=== PATIENT | female | born 1955 | race Caucasian/White ===

== ENCOUNTER → 2019-01-04 | Day surgery (SDC) | payer OTHER ==
[2019-01-03 17:16] LABS: BASOPHILS % 0.5 % (0.0-1.0); EOSINOPHILS # (AUTO) 0.2 (0.0-0.4); EOSINOPHILS % 2.6 % (0.0-6.0); HEMATOCRIT 41.6 % (34.2-44.1); HEMOGLOBIN 13.9 g/dL (12.0-16.0); LYMPHOCYTES % 34.3 % (18.0-39.1); MEAN CORPUSCULAR HGB CONC 33.4 g/dL (31-35); MEAN CORPUSCULAR VOLUME 89.7 fL (81-99); MONOCYTES # (AUTO) 0.6 (0.2-0.8); MONOCYTES % 6.5 % (4.4-11.3); NEUTROPHILS # (AUTO) 4.9 (2.1-6.9); NEUTROPHILS % 55.9 % (38.7-80.0); PLATELET COUNT 261 x10e3/uL (140-360); RED BLOOD COUNT 4.64 x10e6/uL (3.6-5.1); RED CELL DISTRIBUTION WIDTH 12.3 % (11.7-14.4)
--- NOTE | 2019-01-03 17:16 | Diagnostic Imaging Report ---
EXAMINATION: CHEST 2 VIEWS INDICATION: Preop evaluation for foot surgery. No chest pain or shortness of breath. COMPARISON: None FINDINGS: PA and lateral views TUBES and LINES: None. LUNGS: Lungs are well inflated. Bilateral peribronchial cuffing. There is no evidence of pneumonia or pulmonary edema. PLEURA: No pleural effusion or pneumothorax. HEART AND MEDIASTINUM: Cardiac size is mildly enlarged. BONES AND SOFT TISSUES: No acute osseous lesion. Soft tissues are unremarkable. UPPER ABDOMEN: No free air under the diaphragm. There are cholecystectomy clips. IMPRESSION: Bilateral peribronchial cuffing, which could represent viral etiology or reactive airway disease. Signed by: Dr. Andrea Kennedy M.D. on 01/03/2019 5:13 PM
[2019-01-03 17:33] LABS: ANION GAP 13.6 mmol/L (8-16); BLOOD UREA NITROGEN 8 mg/dL (7-26); BUN/CREATININE RATIO 10 (6-25); CALCIUM 9.5 mg/dL (8.4-10.2); CARBON DIOXIDE 24 mmol/L (22-29); CHLORIDE 108 mmol/L (98-107); CREATININE, SERUM 0.81 mg/dL (0.57-1.11); EST GLOMERULAR FILTRATION RATE > 60 ML/MIN (60-); GLUCOSE 107 mg/dL (74-118); POTASSIUM 3.6 mmol/L (3.5-5.1); SODIUM 142 mmol/L (136-145)
[~2019-01-04] MED LIST: ALBUTEROL0.63 MG/3 INH; BUPIVACAINE HCL 0.5% INJ 30 ML VIAL INJ ONE; CEFAZOLIN SOD 1 GM/NS 50ML 50 ML IV ONE; CHLORTHALIDONE25 MG PO; DEXAMETHASONE SOD PHOS INJ 4 MG/ML VIAL ONE; FENTANYL CITRATE/PF 100MCG/2 ML INJ ONE; KETOROLAC TROMETHAMINE 30 MG/ML VIAL ONE; LIDOCAINE HCL 2% LOCAL INJ 5 ML SDV VIAL INJ ONE; MIDAZOLAM HCL 2 MG/2 ML VIAL ONE; OMEPRAZOLE40 MG PO; ONDANSETRON HCL INJ 2MG/ML 2ML 2 MG/ML VIAL ONE; POTASSIUM CHLO10 ME1 PO; PROPOFOL IV EMULSION 10 MG/ML 20 ML VIAL ONE; SERTRALINE HCL50 MG PO; SEVOFLURANE INHAL SOLN 250 ML PEN BTL ONE; VERAPAMIL ER120 MG PO
--- OUTSIDE RECORDS SUMMARY | 2019-01-04 05:24 | XMS REPORT | Continuity of Care Document ---
Author Author [facility] Interface Address Unknown Phone Unavailable Problems Problem Status Onset Date Classification Date Reported Comments Source Voiding dysfunction Active Problem 03/14/2018 [facility] Urinary frequency Active Problem 03/14/2018 [facility] Leukocytes in urine Active Problem 03/14/2018 [facility] Urinary tract infection Active Problem 03/14/2018 [facility] Medications Medication Details Route Status Patient Instructions Ordering Provider Order Date Source Nitrofurantoin 100 MG Oral Capsule [Macrobid] 100 mg=1 cap, PO, BID, pt to take i po bid for 3-5 days when sx+, X 30 day, # 60 cap, 1 Refill(s) No Longer Active 12/06/2017 [facility] Nitrofurantoin 100 MG Oral Capsule [Macrobid] 100 mg=1 cap, PO, BID, pt to take i po bid for 3-5 days and hold the remainder for later use, X 30 day, # 60 cap, 0 Refill(s) Active 09/22/2017 [facility] Allergies, Adverse Reactions, Alerts Substance Category Reaction Severity Reaction type Status Date Reported Comments Source Immunizations Immunization Date Given Site Status Last Updated Comments Source Results Order Name Results Value Reference Range Date Interpretation Comments Source URINE AND STOOL POC UA Prot Negative mg/dL Negative mg/dL 12/06/2017 [facility] URINE AND STOOL POC UA pH 7.0 5.0 - 8.0 12/06/2017 [facility] URINE AND STOOL POC UA SG 1.010 <=1.030 12/06/2017 [facility] URINE AND STOOL POC UA Turbidity Clear *NA* (12/06/17 8:52 AM) Clear 12/06/2017 [facility] URINE AND STOOL POC UA Color Yellow *NA* (12/06/17 8:52 AM) Yellow 12/06/2017 [facility] URINE AND STOOL POC UA Glu Negative mg/dL Negative mg/dL 12/06/2017 [facility] URINE AND STOOL POC UA Ket Negative mg/dL Negative mg/dL 12/06/2017 [facility] URINE AND STOOL POC UA Uro 0.2 EU/dL 0.1 - 1.0 12/06/2017 [facility] URINE AND STOOL POC UA Bld Negative *NA* (12/06/17 8:52 AM) Negative 12/06/2017 [facility] URINE AND STOOL POC UA Bili Negative *NA* (12/06/17 8:52 AM) Negative 12/06/2017 [facility] URINE AND STOOL POC UA LeukEst Trace *ABN* (12/06/17 8:52 AM) Negative 12/06/2017 [facility] URINE AND STOOL POC UA Nit Negative *NA* (12/06/17 8:52 AM) Negative 12/06/[facility] Abdomen/Pelvis w/wo IV contrast CT Abdomen/Pelvis w/wo IV contrast CT Exam: CT Scan of the abdomen and pelvis with and without contrast Reason for Exam: Frequent urinary tract infections Comparison Exam: None Technique: Multiple axial images were obtained of the abdomen and pelvis. 5 mm slices were acquired before and after injection of 100 cc Omnipaque 300 IV. Reformatted sagittal and coronal images were obtained for additional diagnostic information. Total exam DDW=9955 mGy-cm. This exam was performed according to our departmental dose-optimization program, which includes automated exposure control, adjustment of the MA and/or KV according to patient size and/or use of iterative reconstruction technique. Discussion: Visualized portions of the lung bases are unremarkable. The patient is status post cholecystectomy. No biliary duct dilation. Liver is unremarkable. Portal venous system is patent. Stomach is unremarkable. Pancreas, adrenal glands, and spleen are within normal limits. No calcified stones seen within the kidneys, ureters, or the bladder. No focal enhancing masses seen within the kidneys or the bladder. No dilated loops of bowel. The appendix is normal. Uterus and bladder are unremarkable. No appreciable lymphadenopathy. No acute bony abnormalities appreciated. No suspicious osteoblastic or osteolytic lesions. No evidence seen for abdominal aortic aneurysm or dissection. Impression: 1. No calcified stones seen within the kidneys, ureters, or the bladder. No focal enhancing masses seen within the kidneys or the bladder. 09/13/2017 - - Read by: Melchor Laguerre MD Dictated Date/time: 09/13/17 12:22 Electronically Signed by: Melchor Laguerre MD 09/13/17 12:38 FINAL REPORT MAIA Chen Vital Signs Vital Sign Value Date Comments Source Weight 73.636 12/06/2017 [facility] BMI Calculated 27.87 12/06/2017 [facility] Height 162.56 cm 12/06/2017 [facility] Systolic (mm Hg) 163 12/06/2017 [facility] Diastolic (mm Hg) 76 12/06/2017 [facility] Heart Rate 57 12/06/2017 [facility] BMI Calculated 28.21 09/22/2017 [facility] Height 162.56 cm 09/22/2017 [facility] Weight 74.545 09/22/2017 [facility] Heart Rate 59 09/22/2017 [facility] Systolic (mm Hg) 161 09/22/2017 [facility] Diastolic (mm Hg) 76 09/22/2017 [facility] Encounters Location Location Details Encounter Type Encounter Number Reason For Visit Attending Provider ADM Date DC Date Status Source Outpatient [id number] [facility] 09/22/2017 [facility] [place] [id number] [facility] 09/22/2017 09/23/2017 [facility] Outpatient [id number] [facility] 12/06/2017 [facility] [place] [id number] [facility] 12/06/2017 12/07/2017 [facility] Outpatient [id number] [facility] 02/23/2019 [facility] Procedures Procedure Code Date Perfomer Comments Source Measurement of post-voiding residual urine and/or bladder capacity by ultrasound, non-imaging 08675 12/06/2017 [facility] Cystourethroscopy (separate procedure) 55113 09/22/2017 [facility]
--- OUTSIDE RECORDS SUMMARY | 2019-01-04 05:24 | XMS REPORT | Clinical Summary ---
Author Author [facility] Address Unknown Phone Unavailable Care Team Providers Care Supervisor Agricultural Education Name Role Phone Asked, No Pcp PCP Unavailable Allergies No Known Allergies Medications End Date Status Medication Sig Dispensed Refills Start Date Active verapamil sustained Take 240 mg 0 release (CALAN-SR) 240 MG by mouth SR tablet nightly. Active chlorthalidone (HYGROTEN) Take 25 mg by 0 25 MG tablet mouth daily. Active aspirin (ECOTRIN) 81 MG Take 81 mg by 0 enteric coated tablet mouth daily. Active multivitamins & Take by mouth 0 minerals-ferrous daily. gluconate 9 mg iron/15 mL liquid Active omega-3 acid ethyl esters Take 1 g by 0 (LOVAZA) 1 gram capsule mouth 2 (two) times a day. Active folic acid (FOLVITE) 1 MG Take 1 mg by 0 tablet mouth daily. Active magnesium chloride 64 mg Take 64 mg by 0 tablet,delayed release mouth daily. (DR/EC) DR tablet Active omeprazole (PriLOSEC) 40 TAKE 1 90 capsule 3 08/30/201 MG capsule CAPSULE DAILY 8 08/30/2018 Discontinued omeprazole (PriLOSEC) 40 Take 1 90 capsule 3 09/10/201 MG capsule capsule (40 7 mg total) by mouth daily. Active Problems Problem Noted Date GERD (gastroesophageal reflux disease) 09/23/2016 Esophageal stricture 09/23/2016 HTN (hypertension) 09/23/2016 HLD (hyperlipidemia) 09/23/2016 S/P cholecystectomy 09/23/2016 H/O section 09/23/2016 Encounters Care Team Description Date Type Specialty Margarito Roberts MD 08/30/2018 Refill Gastroenterology after 01/03/2018 Family History Medical History Relation Name Comments Rectal cancer Maternal Grandmother Relation Name Status Comments Father prostate cancer Maternal Grandmother lung cancer, ovarian cancer Mother melanoma Social History Date Tobacco Use Types Packs/Day Years Used Never Smoker Alcohol Use Drinks/Week oz/Week Comments No Sex Assigned at Date Recorded Not on file Industry Job Start Date Occupation Not on file Not on file Not on file Travel End Travel History Travel Start No recent travel history available. Last Filed Vital Signs Not on file Plan of Treatment Health Maintenance Due Date Last Done Comments CERVICAL CANCER SCREENING 1976 BREAST CANCER SCREENING 2005 COLON CANCER SCREENING 2005 SHINGLES VACCINES (#1) 2005 INFLUENZA VACCINE 06/01/2018 Results Not on fileafter 01/03/2018 Insurance Payer Benefit Subscriber ID Type Phone Address Plan / Group AETNA AETNA xxxxxxxxxx HMO HMO,POS,EP O, MC/EC Advance Directives Patient has advance care planning documents on file. For more information, erik robles contact: Fabrice Barahona [address] [place] [address]
--- OUTSIDE RECORDS SUMMARY | 2019-01-04 05:24 | XMS REPORT | Summary of Care ---
Author Author [facility] [place] [facility] Address Unknown Phone Unavailable Encounter [employer](FIN) [id number] Date(s): 09/22/17 - 09/22/17 [facility] [address] [facility], [address] [place] [phone] Discharge Disposition: Home or Self Care Attending Physician: Tay Marshall MD Vital Signs Most recent to 1 oldest [Reference Range]: Height 162.56 cm (09/22/17 2:36 PM) Blood Pressure 161/76 mmHg [90-140/60-90 mmHg] *HI* (09/22/17 2:36 PM) Peripheral Pulse 59 bpm Rate [60-100 bpm] *LOW* (09/22/17 2:36 PM) Weight 74.545 kg (09/22/17 2:36 PM) Body Mass Index 28.21 m2 (09/22/17 2:36 PM) Problem List Condition Effective Dates Status Health Status Informant Voiding Active dysfunction(Confirme d) Urinary Active frequency(Confirmed) Leukocytes in Active urine(Confirmed) Urinary tract Active infection(Confirmed) Allergies, Adverse Reactions, Alerts No data available for this section Medications Macrobid 100 mg oral capsule 100 mg=1 cap, PO, BID, pt to take i po bid for 3-5 days and hold the remainder f or later use, X 30 day, # 60 cap, 0 Refill(s) Start Date: 09/22/17 Stop Date: 10/22/17 Status: Ordered Results No data available for this section Immunizations No data available for this section Procedures Procedure Date Related Diagnosis Body Site Cystourethroscopy (separate procedure) 09/22/17 Social History Social History Type Response Smoking Status Never smoker; Exposure to Tobacco Smoke None; Cigarette Smoking Last 365 Days No; Reg Smoking Cessation Counseling No Assessment and Plan No data available for this section
--- OUTSIDE RECORDS SUMMARY | 2019-01-04 05:24 | XMS REPORT ---
Author Author [facility] Address Unknown Phone Unavailable Care Team Providers Care Continuous Improvement Facilitator Name Role Phone Laura BEY Unavailable Unavailable Problems This patient has no known problems. Allergies, Adverse Reactions, Alerts This patient has no known allergies or adverse reactions. Medications This patient has no known medications. Results Test Description Test Time Test Comments Text Results Atomic Results Result Comments CHEST 2 VIEWS 2019-01-03 17:12:00 [facility] [address] [address] Patient Name: DEMETRIA CARBAJAL MR #: [id number] : 1955 Age/Sex: 63/F Req #: [id number] Adm Physician: Ordered by: Laura BEY DPM Report #: [id number] Location: OR Room/Bed: Procedure: [id number] DX/CHEST 2 VIEWS Exam Date: 01/03/19 Exam Time: 1647 REPORT STATUS: Signed EXAMINATION: CHEST 2 VIEWS INDICATION: Preop evaluation for foot surgery. No chest pain or shortness of breath. COMPARISON: None FINDINGS: PA and lateral views TUBES and LINES: None. LUNGS: Lungs are well inflated. Bilateral peribronchial cuffing. There is no evidence of pneumonia or pulmonary edema. PLEURA: No pleural effusion or pneumothorax. HEART AND MEDIASTINUM: Cardiac size is mildly enlarged. BONES AND SOFT TISSUES: No acute osseous lesion. Soft tissues are unremarkable. UPPER ABDOMEN: No free air under the diaphragm. There are cholecystectomy clips. IMPRESSION: Bilateral peribronchial cuffing, which could represent viral etiology or reactive airway disease. Signed by: Dr. Carmita Kennedy M.D. on 01/03/2019 5:13 PM Dictated By: CARMITA KENNEDY MD 12 Transcribed By: HELENA on 01/03/191712 COPY TO: Laura BEY DPM
--- OUTSIDE RECORDS SUMMARY | 2019-01-04 05:24 | XMS REPORT | Encounter Summary ---
Author Organization Unknown Address [address] [place] [address] Phone [phone] Care Team Providers Care Sustainability Analyst Name Role Phone Dr. Jaymie Nixon 3 [phone] Margarito Roberts MD 107 [phone] Fawn Nam DO 108 [phone] Tay Marshall MD 115 [phone] Jazz Gibson MD 126 [phone] Reason for Visit Mixed anxiety and depressive disorder; Hypertensive disorder; Asthma; Hyperlipidemia; Annual physical - female Instructions 1. Hyperlipidemia high cholesterol: care instructions CMP, serum or plasma lipid panel, serum simvastatin 20 mg tablet 2. Screening for malignant neoplasm of breast MAMMO, screening, digital, bilateral - Please schedule & contact our patient. thank y ou 3. Immunization Adacel (Tdap Adolesn/Adult)(PF)2 Lf-(2.5-5-3-5)-5 Lf/0.5 mL IM syringe 4. Effects of high altitude acetazolamide 125 mg tablet learning about altitude sickness 5. Traveler's diarrhea ciprofloxacin 500 mg tablet Pepto-Bismol 262 mg chewable tablet Imodium A-D 2 mg tablet traveler's diarrhea: care instructions 6. Body mass index 25-29 - overweight learning about healthy weight 7. Mixed anxiety and depressive disorder 8. Hypertensive disorder urinalysis, dipstick TSH, serum or plasma verapamil ER 240 mg 24 hr capsule,extended release Discussion Note: None recorded. Plan of Care Reminders Provider Appointments Nurse Visit 12/21/2018 10:00AM Nurse [facility] Est Patient 03/03/2019 2:15PM Jaymie Nixon MD Lab Urinalysis, Dipstick 12/06/2018 [facility] CMP, Serum or Plasma 01/05/2019 [facility] Lipid Panel, Serum 01/05/2019 [facility] TSH, Serum or Plasma 01/05/2019 [facility] Referral None recorded. Procedures None recorded. Surgeries None recorded. Imaging MAMMO, Screening, Digital, Bilateral 12/06/2018 [facility] [place] Scheduling Medications Name Start Date acetazolamide 125 mg tablet Take 1 tablet twice a day by oral route for 10 days. chlorthalidone 25 mg tablet Take 1 tablet every day by oral route. ciprofloxacin 500 mg tablet Take 1 tablet twice a day by oral route for 7 days. Imodium A-D 2 mg tablet take 2 tablets by mouth when diarrhea starts.. Then take 1 tablet once an hour as needed, up to a maximum of 4 tablets in 24 hours omeprazole 40 mg capsule,delayed release QD Pepto-Bismol 262 mg chewable tablet Take 2 tablets every 3-4 hours by oral route as needed. potassium chloride ER 8 mEq tablet,extended release Take 2 tablets every day by oral route. ProAir HFA 90 mcg/actuation aerosol inhaler Inhale 2 puffs every 6 hours by inhalation route as needed. sertraline 50 mg tablet TAKE ONE TABLET BY MOUTH DAILY simvastatin 20 mg tablet TAKE 1 TABLET DAILY verapamil ER 240 mg 24 hr capsule,extended release TAKE 1 CAPSULE DAILY Medications Administered None recorded. Vitals Height Weight BMI Blood Pressure 5 ft 4 in 167 lbs 28.7 kg/m2 (1) 154/70 mm[Hg] (2) 160/80 mm[Hg] Lab Results None recorded. Allergies Code Code System Name Reaction Severity Status Onset NKDA Problems Name Status Onset Date Source Hyperlipidemia Active 04/09/2017 Hypertensive Disorder Active 04/09/2017 Carotid Atherosclerosis Active 04/09/2017 Mixed Anxiety and Depressive Disorder Active 11/27/2017 Asthma Active 06/17/2018 Procedures Date Name Performed by 11/01/2009 Cholecystectomy (Gall Bladder Removal) Information not available 11/01/1977 Caesarean Section Information not available 12/06/2018 MAMMO, Screening, Digital, Bilateral [facility] [place] [facility] Scheduling [address] [facility] [address] (Work Place) Vaccine List Vaccine Type influenza, injectable, quadrivalent 11/01/2016 08/30/2017 Tdap 12/06/20180.5 mL Social History Smoking Status Never Smoker Past Encounters 12/06/2018 Hyperlipidemia; Screening for Malignant Neoplasm of Breast; Immunization; Effects of High Altitude; Traveler's Diarrhea; Body Mass Index 25-29 - Overweight; Mixed Anxiety and Depressive Disorder; Hypertensive Disorder Jaymie Nixon MD: [address] [place] [address], Ph. History of Present Illness Note:61yo female presents for six-month follow-up. Last visit was 06/17/18. At time of visit in Nov 2017, pt was started on sertraline 25mg qd. Never increased dose to 50mg qd, because she feels like the 25mg qd dose has made a significant improvement in her mood. Less irritated by little things that used to bother her. Less angry. Feels calmer. No unwanted side effects of Zoloft. Would like to continue at current dose. <div>Is planning to travel to [place] in late December for mission trip for two weeks. Will be visiting [facility] for first week - had headache & altitude sickness first visit there. Requesting medication to help with elevation. </div><div>Needs order to update mammogram. Last mammo was 09/17/17 at [facility] - normal. No hx of breast cancer in pt or her family.
</div><div>Had EGD & colonoscopy in [address] Shahab Roberts, GI in [facility] [place]. Had esophageal dilatation from stricture (second time). Takes PPI medication daily.
</div><div>Dr Jazz Gibson, gyne in [place] for annual Pap in 2016. Due in 2019.</div><div>Has referral to see cardiology, Dr Shira Raphael for right carotid US. Was last screening by Dr Damico in office with "mild blockage".</div><div>Will plan to update lipids/cmp later in month when fasting.
<div><div>
</div><div>Prior labs from 06/08/18 with TC 175, HDL 60, LDL 91, TG 121, normal CMP with GFR >60, glu 97, Hgb 14.1. Compared lipid panel to prior <span style="font-size: 14px;">on 09/14/17 showing TC 251, LDL 161, HDL 63, TG 135.</span><span style="font-size: 14px;"> Pt taking simvastatin 20mg qhs. Is also watching low chol diet from airport representative & taking OTC supplements to lower lipids. Taking folic acid, CoQ-10, ASA 81mg qd, and fish oil.</span></div><div>
</div><div><div><div><div><div><div><div>< div>PMHx:</div><div>Hypertension - currently on verapamil ER 240mg qd, chlorthalidone 25mg qd, and potassium ER 8mEq two tablets qd.</div><div> Hyperlipidemia - Lipid panel on 06/08/18 much improved from prior lipids on with simvastatin 20mg qhs.</div></div></div><div>Frequent UTIs - saw Dr. Tay Marshall, urologist at [facility]. </div></div></div></div></div></div></div></div> Review of Systems:ROS as noted in the [facility] Review of Systems Comprehensive General Adult ROS Reported By: Patient Constitutional: Constitutional: no fever Eyes: Eyes: no vision change Cardiovascular: Cardiovascular: no chest pain Respiratory: Respiratory: no cough, no wheezing, no shortness of breath Gastrointestinal: Gastrointestinal: no abdominal pain Neurologic: Neurologic: no loss of consciousness, no headaches Psychiatric: Psych: no depression, no alcohol abuse, no anxiety, no suicidal thoughts Physical Exam Upper Respiratory Infection Exam Comprehensive Reported By: Patient Constitutional: General Appearance in no acute distress Skin: Inspection and palpation: no rash, no lesions Head: Sinuses no tenderness Nose: Nasal Mucosa normal Oral Cavity/Mouth: Lips, teeth, gums normal lips. Oral Mucosa: normal, moist. Tongue: normal tongue. Tonsils: normal tonsils. Posterior pharynx: normal Lungs: Auscultation breath sounds normal, no wheezing, no rales / crackles Cardiovascular System: Auscultation regular rate and rhythm, no murmur. Observation/Palpation of peripheral vascular system carotid pulse normal, no edema; no carotid bruit appreciated
--- OUTSIDE RECORDS SUMMARY | 2019-01-04 05:24 | XMS REPORT | Summary of Care ---
Author Author [facility] Organization [facility] Address Unknown Phone Unavailable Encounter KERI Fu(VIVIAN) [id number] Date(s): 12/06/17 - 12/06/17 [facility] [address] [facility], [address] [phone] Discharge Disposition: Home or Self Care Attending Physician: Tay Marshall MD Vital Signs Most recent to 1 oldest [Reference Range]: Height 162.56 cm (12/06/17 9:09 AM) Blood Pressure 163/76 mmHg [90-140/60-90 mmHg] *HI* (12/06/17 9:09 AM) Peripheral Pulse 57 bpm Rate [60-100 bpm] *LOW* (12/06/17 9:09 AM) Weight 73.636 kg (12/06/17 9:09 AM) Body Mass Index 27.87 m2 (12/06/17 9:09 AM) Problem List Condition Effective Dates Status Health Status Informant Voiding Active dysfunction(Confirme d) Urinary Active frequency(Confirmed) Leukocytes in Active urine(Confirmed) Urinary tract Active infection(Confirmed) Allergies, Adverse Reactions, Alerts Substance Reaction Severity Status NKDA Active Medications Macrobid 100 mg oral capsule 100 mg=1 cap, PO, BID, pt to take i po bid for 3-5 days when sx+, X 30 day, # 60 cap, 1 Refill(s) Start Date: 12/06/17 Stop Date: 02/04/18 Status: Completed Results URINE AND STOOL Most recent to 1 oldest [Reference Range]: POC UA Turbidity Clear [Clear] *NA* (12/06/17 8:52 AM) POC UA Color Yellow [Yellow] *NA* (12/06/17 8:52 AM) POC UA pH [5.0-8.0] 7.0 (12/06/17 8:52 AM) POC UA SG [<=1.030] 1.010 (12/06/17 8:52 AM) POC UA Glu [Negative Negative mg/dL mg/dL] *NA* (12/06/17 8:52 AM) POC UA Bld Negative [Negative] *NA* (12/06/17 8:52 AM) POC UA Ket [Negative Negative mg/dL mg/dL] *NA* (12/06/17 8:52 AM) POC UA Prot Negative mg/dL [Negative mg/dL] *NA* (12/06/17 8:52 AM) POC UA Uro [0.1-1.0 0.2 EU/dL EU/dL] (12/06/17 8:52 AM) POC UA Bili Negative [Negative] *NA* (12/06/17 8:52 AM) POC UA LeukEst Trace [Negative] *ABN* (12/06/17 8:52 AM) POC UA Nit Negative [Negative] *NA* (12/06/17 8:52 AM) Immunizations No data available for this section Procedures Procedure Date Related Diagnosis Body Site Status Measurement of post-voiding residual urine 12/06/17 Completed and/or bladder capacity by ultrasound, non-imaging Social History Social History Type Response Smoking Status Never smoker; Exposure to Tobacco Smoke None; Cigarette Smoking Last 365 Days No; Reg Smoking Cessation Counseling No entered on: 12/06/17 Assessment and Plan No data available for this section
--- OUTSIDE RECORDS SUMMARY | 2019-01-04 05:24 | XMS REPORT | Encounter Summary ---
Author Organization Unknown Address [address] [place] [id number] Phone [phone] Care Team Providers Care Websphere Portal Developer Name Role Phone Dr. Jaymie Nixon 3 [phone] Margarito Roberts MD 107 [phone] Fawn Nam DO 108 [phone] Tay Marshall MD 115 [phone] Jazz Gibson MD 126 [phone] Reason for Visit lab only visit Instructions 1. Hypertensive disorder TSH, serum or plasma 2. Hyperlipidemia CMP, serum or plasma lipid panel, serum Discussion Note: None recorded. Patient educational handouts: No information available. Plan of Care Reminders Provider Appointments Est Patient 03/03/2019 2:15PM Jaymie Nixon MD Lab CMP, Serum or Plasma 12/21/2018 [facility] Lipid Panel, Serum 12/21/2018 [facility] TSH, Serum or Plasma 12/21/2018 [facility] Referral None recorded. Procedures None recorded. Surgeries None recorded. Imaging None recorded. Medications Name Start Date acetazolamide 125 mg [...] tablet TAKE 1 TABLET DAILY verapamil ER (SR) 120 mg tablet,extended release Take 2 tab by mouth once daily please advise pt of change verapamil ER 120 mg 24 hr capsule,extended release Take 2 tablets daily Medications Administered None recorded. Vitals None recorded. Lab Results None recorded. Allergies Code Code [...] not available 12/06/2018 MAMMO, Screening, Digital, Bilateral [facility] [address] [place] [address] (Work Place) Vaccine List Vaccine Type influenza, injectable, quadrivalent 11/01/2016 08/30/2017 Tdap 12/06/20180.5 mL Social History Smoking Status Never Smoker Past Encounters 12/21/2018 Hypertensive Disorder; Hyperlipidemia Jaymie Nixon MD: [address] [place] [address], Ph. 12/06/2018 Hyperlipidemia; Screening for Malignant Neoplasm of Breast; Immunization; Effects of High Altitude; Traveler's Diarrhea; Body Mass Index 25-29 - Overweight; Mixed Anxiety and Depressive Disorder; Hypertensive Disorder Jaymie Nixon MD: [address] [place] [address], Ph. History of Present Illness None recorded. Review of Systems None recorded. Physical Exam None recorded.
[2019-01-04 09:15] VITALS: BP 148/80
--- NOTE | 2019-01-04 16:55 | Operative Report ---
DATE OF PROCEDURE: 01/04/2019 SURGEON: Kilo Boyce DPM ([facility]) HEALTH PROGRAM ANALYST SURGEON: Evelin Mota DPM PREOPERATIVE DIAGNOSIS: Fractured sesamoid, left foot. POSTOPERATIVE DIAGNOSIS: Fractured sesamoid, left foot. OPERATIVE PROCEDURE: Excision of sesamoid, left foot. DESCRIPTION OF PROCEDURE: The patient was placed on the OR table in the supine position. The left lower extremity was prepped and draped in the usual manner. A general anesthetic was administered and hemostasis accomplished using a pneumatic cuff set at 250 mmHg at ankle level. An incision of approximately 4 cm long was made on the medial aspect of the first metatarsophalangeal joint. Incision was deepened exposing the capsule. The capsule was opened with a linear incision and the plantar aspect was retracted plantarly. This exposed the sesamoid. The sesamoid was isolated and excised. The fractured fragment on the proximal aspect was also removed. The long flexor tendon was visualized and noted to be intact. The wound was flushed with sterile saline solution. The capsule and subcutaneous tissue closed with 3-0 Vicryl and the skin with 4-0 nylon. Following the procedure, 9 mL of 0.5% Marcaine and 1 mL of Decadron were injected. A sterile compression dressing was then applied. At this time, the pneumatic cuff was released and reflex hyperemia was observed to all digits. The patient tolerated the procedure and the anesthesia well and left the OR to recovery in good condition with vital signs stable. Kilo Boyce DPM ([place]) SH/MODL /[id number]
== END | disposition home or self-care (01) ==
LOC: OR 05:21
PROVIDERS: ATTEND Podiatrist Foot & Ankle Surgery
DX: S92.812A Other fracture of left foot, initial encounter for closed fracture (principal); J45.909 Unspecified asthma, uncomplicated; I10 Essential (primary) hypertension; K21.9 Gastro-esophageal reflux disease without esophagitis; F41.9 Anxiety disorder, unspecified; X58.XXXA Exposure to other specified factors, initial encounter; Z01.810 Encounter for preprocedural cardiovascular examination; Z01.812 Encounter for preprocedural laboratory examination; Z01.818 Encounter for other preprocedural examination
CPT/HCPCS: 28315; 36415; 71046; 80048; 85025; 93005; J0690; J1100; J1885; J2001; J2250; J2405; J2704

== ENCOUNTER → 2019-03-08 | Day surgery (SDC) | payer OTHER ==
[2019-03-06 14:42] LABS: BASOPHILS % 0.5 % (0.0-1.0); EOSINOPHILS # (AUTO) 0.2 (0.0-0.4); EOSINOPHILS % 1.8 % (0.0-6.0); HEMATOCRIT 42.8 % (34.2-44.1); LYMPHOCYTES # (AUTO) 3.2 (1.0-3.2); LYMPHOCYTES % 37.2 % (18.0-39.1); MEAN CORPUSCULAR HEMOGLOBIN 29.7 pg (28-32); MEAN CORPUSCULAR HGB CONC 32.7 g/dL (31-35); MEAN CORPUSCULAR VOLUME 90.7 fL (81-99); MONOCYTES # (AUTO) 0.7 (0.2-0.8); MONOCYTES % 8.2 % (4.4-11.3); NEUTROPHILS # (AUTO) 4.5 (2.1-6.9); NEUTROPHILS % 52.1 % (38.7-80.0); PLATELET COUNT 262 x10e3/uL (140-360); RED BLOOD COUNT 4.72 x10e6/uL (3.6-5.1); RED CELL DISTRIBUTION WIDTH 11.9 % (11.7-14.4)
[2019-03-06 14:50] LABS: INR 0.87; PROTHROMBIN TIME 12.3 seconds (11.9-14.5)
[2019-03-06 14:59] LABS: ALANINE AMINOTRANSFERASE 26 IU/L (0-55); ALBUMIN/GLOBULIN RATIO 1.1 (0.8-2.0); ALKALINE PHOSPHATASE 97 IU/L (40-150); ANION GAP 12.5 mmol/L (8-16); BLOOD UREA NITROGEN 12 mg/dL (7-26); BUN/CREATININE RATIO 15 (6-25); CALCIUM 10.3 mg/dL (8.4-10.2); CARBON DIOXIDE 27 mmol/L (22-29); CHLORIDE 101 mmol/L (98-107); CREATININE, SERUM 0.81 mg/dL (0.57-1.11); EST GLOMERULAR FILTRATION RATE > 60 ML/MIN (60-); GLUCOSE 91 mg/dL (74-118); POTASSIUM 3.5 mmol/L (3.5-5.1); SODIUM 137 mmol/L (136-145)
[~2019-03-08] VITALS: Ht 162.6 cm; Wt 74.8 kg
[~2019-03-08] MED LIST changes: +ALPRAZOLAM 0.5 MG TAB ONE; +ASPIR 8181 MG PO; -BUPIVACAINE HCL 0.5% INJ 30 ML VIAL INJ ONE; +CALCIUM-MAGNES1 EAC6 PO; -CEFAZOLIN SOD 1 GM/NS 50ML 50 ML IV ONE; -DEXAMETHASONE SOD PHOS INJ 4 MG/ML VIAL ONE; +DIPHENHYDRAMINE HCL 25 MG CAP ONE; +FISH OIL 1,2001 EACH PO; +FOLIC ACID0.8 MG PO; +HEPARIN SOD/SOD CHLORIDE 2,000 ML ONE; +HYDROCODONE/APAP 7.5MG-325MG 1 EA TAB ONE; +IOPAMIDOL 300MG/ML 100 ML INFUS..BTL IV ONE; -KETOROLAC TROMETHAMINE 30 MG/ML VIAL ONE; +LIDOCAINE HCL 2% LOCAL 20 ML VIAL ONE; -LIDOCAINE HCL 2% LOCAL INJ 5 ML SDV VIAL INJ ONE; +LISINOPRIL2.5 MG PO; +MULTI-VITAMIN1 EACH PO; -ONDANSETRON HCL INJ 2MG/ML 2ML 2 MG/ML VIAL ONE; -PROPOFOL IV EMULSION 10 MG/ML 20 ML VIAL ONE; -SEVOFLURANE INHAL SOLN 250 ML PEN BTL ONE; +SIMVASTATIN40 MG PO; +SODIUM CHLORIDE 0.9% 1000ML 1,000 ML ONE
--- OUTSIDE RECORDS SUMMARY | 2019-03-08 10:23 | XMS REPORT | Clinical Summary ---
Author Author [facility] Organization [employer] [facility] Address Unknown Phone Unavailable Care Team Providers Care Turntable Operator Name Role Phone Asked, No Pcp PCP [...] Margarito Roberts MD 08/30/2018 Refill Gastroenterology after 03/07/2018 Family History Medical History Relation Name Comments [...] 2005 SHINGLES VACCINES (#1) 2005 INFLUENZA VACCINE 06/01/2019 Results Not on fileafter 03/07/2018 Insurance Payer Benefit Subscriber ID Type Phone Address Plan / Group AETNA AETNA xxxxxxxxxx HMO HMO,POS,EP O, MC/EC Advance Directives Patient has advance care planning documents on file. For more information, erik robles contact: Fabrice Barahona [address] [place] [address]
--- NOTE | 2019-03-08 11:30 | NUR ---
[address] Finney c/o Colon scheduled for [facility] Prepped in usual fashion. Left iv hand #20 gx1 site w/o s/s infiltration. RBO DR Finney 5.5/325Lortab po,Benedrly 50 and Xanax 1.o now.MOnitor NSR Bp systolic 148, Family at bedside with reassurance and prayers. ds/rn
[2019-03-08 14:00] VITALS: BP 153/52
[2019-03-08 14:15] VITALS: BP 133/52
[2019-03-08 14:30] VITALS: BP 134/58
--- NOTE | 2019-03-08 14:30 | NUR ---
1430 Received in room #8 [facility] clear Carotid blockage 25 Fentynl/1 versed given in labor relations director. Pt remains very drowsy Tolerating H2o HOB elevated. Back to baseline orientation. Rt Vascade device w/o gross signs of pain,pallor,pressure or dysrhythmia.Resp shallow and regular 100% on room air. Abdomen soft and non tender Denies necessity to defecate or urinate. Dave femoral pulses present Ns iv infusing w/o s/s infiltration. Discussed dc POC with family. Aware of importance of f/o care ds/rn
[2019-03-08 14:45] VITALS: BP 122/77
[2019-03-08 15:00] VITALS: BP 132/72
[2019-03-08 15:30] VITALS: BP_SYST 113; BP_DIAS 90; BP_DIAS 91
--- NOTE | 2019-03-08 15:30 | NUR ---
1530 Discharged home with rt vascade closure site intact Denies CP or SOB, No gross signs of pain pallor pressure or dysrhythmia.Iv removed site w/o s/s infiltration Coban dressing in place. Aware of importance of f/o care and has copies of dc papers Escorted to car per w/c vs stable and goal achieved. Family is driving.
--- NOTE | 2019-03-08 19:53 | Operative Report ---
DATE OF PROCEDURE: 03/08/2019 SURGEON: August Finney MD INDICATION: Coronary artery disease, abnormal stress test. PROCEDURES PERFORMED: 1. . 2. Bilateral extracranial carotid angiograms. COMPLICATIONS: None. RECOMMENDATIONS: Left internal carotid artery stent placement. DESCRIPTION OF PROCEDURE: Access obtained in the right femoral artery, 6-Hebrew sheath was placed. Diagnostic coronary angiogram revealed mild coronary artery disease, 10% luminal stenosis diffusely, no critical stenosis or occlusions were noted, no intervention deemed necessary. LV end-diastolic pressure of 10. No gradient across the aortic valve on pullback. Bilateral extracranial carotid angiograms were performed. Right internal carotid artery 50% stenosis. Left internal carotid artery 90% stenosis. Repaired using Mynx closure device. The patient was referred for left internal carotid artery stent placement with distal embolic protection device. Right groin repaired using Vascade closure device. MD BLADIMIR Wayne/MODL /[id number]
== END | disposition home or self-care (01) ==
LOC: CATH LAB 10:20
PROVIDERS: ATTEND Internal Medicine Interventional Cardiology
DX: I25.10 Atherosclerotic heart disease of native coronary artery without angina pectoris (principal); R94.39 Abnormal result of other cardiovascular function study; I65.23 Occlusion and stenosis of bilateral carotid arteries; R94.31 Abnormal electrocardiogram [ECG] [EKG]; R06.09 Other forms of dyspnea; I10 Essential (primary) hypertension; E78.00 Pure hypercholesterolemia, unspecified; R60.9 Edema, unspecified; Z01.812 Encounter for preprocedural laboratory examination; Z79.82 Long term (current) use of aspirin; Z82.49 Family history of ischemic heart disease and other diseases of the circulatory system
CPT/HCPCS: 36222; 36415; 80053; 85025; 85610; 93458; C1760; C1769; J2001; J2250; J7030; Q9967